=== PATIENT | female | born 1995 | race Caucasian/White ===

== ENCOUNTER 2018-09-13 07:45 | Day surgery (SDC) | payer MEDICAID ==
[2018-09-08 11:51] LABS: BASOPHILS 0.5 % (0-2); EOSINOPHILS 2.3 % (0-7); HEMATOCRIT 40.3 % (36.0-48.0); LYMPHOCYTES 39.5 % (15-50); MCHC 32.3 g/dL (31.0-37.0); MCV 86.7 fL (80.0-100.0); MEAN PLATELET VOLUME 9.9 fL (7.4-10.4); MONOCYTES 8.3 % (2-11); NEUTROPHILS 49.4 % (40-80); PLATELET COUNT 198 10x3/uL (130-400); RBC 4.65 10x6/uL (4.00-5.40); RDW 14.1 % (11.5-14.5)
[2018-09-08 12:06] LABS: CALC OSMOLALITY 281 mosm/kg (275-300); CALCIUM 8.5 mg/dL (8.5-10.1); CARBON DIOXIDE 28.1 mmol/L (21.0-32.0); CHLORIDE - SERUM 105 mmol/L (98-107); CREATININE - SERUM 0.7 mg/dL (0.6-1.3); GLUCOSE 91 mg/dL (74-106); POTASSIUM - SERUM 3.5 mmol/L (3.5-5.1); SODIUM 141 mmol/L (136-145); UREA NITROGEN 14 mg/dL (7-18); eGFR NON AFRICAN AMERICAN > 90 mL/min (90-120)
[~2018-09-13] VITALS: Ht 162.6 cm; Wt 45.4 kg
[~2018-09-13 07:45] MED LIST: ZOLOFT50 MG PO
[2018-09-13 08:16] LABS: HCG URINE NEGATIVE (NEGATIVE)
[2018-09-13 08:23] VITALS: BP 105/57; Ht 162.6 cm; Wt 45.4 kg
--- NOTE | 2018-09-13 14:15 | NUR ---
REC'D FROM RR. DROWSY. FAMILY AT BEDSIDE. DRESSING CDI. SPRITE BROUGHT TO PT.
--- NOTE | 2018-09-13 14:15 | NUR ---
REC'D FROM RR. FAMILY AT BEDSIDE. SPRITE BROUGHT TO PT. DRESSING CDI.
--- NOTE | 2018-09-13 15:07 | NUR ---
FAMILY AT BEDSIDE. AKUA NAVAS ORDERED FOR PT.
--- NOTE | 2018-09-13 15:15 | NUR ---
AKUA NAVAS SERVED TO PT. NO C/O VOICED. EXPLAINED DC CRITERIA TO PT. VERBALIZED UNDERSTANDING.
--- NOTE | 2018-09-13 15:40 | NUR ---
dr calderon rounded. meds adminsitered per orders. denies pain. eating fl tray. spouse at bedside.
--- NOTE | 2018-09-13 16:05 | NUR ---
AMBULATED TO BATHROOM. VOIDED WITHOUT DIFFICULTY,
--- NOTE | 2018-09-13 16:17 | NUR ---
IV DC'D WITH CATHETER INTACT. WRITTEN AND VERBAL DC INST. GIVEN TO PT ALONG WITH RX. VERBALIZED UNDERSTANDING.
--- NOTE | 2018-09-13 16:30 | NUR ---
DC'D HOME WITH FAMILY VIA PRIVATE VEHICLE. TAKEN TO VEHICLE VIA WC. STABLE AT TIME OF DC.
== END 2018-09-13 16:30 | disposition home or self-care (01) ==
LOC: D.OPS 07:45
PROVIDERS: Obstetrics & Gynecology
DX: Z30.2 Encounter for sterilization (principal); Z30.09 Encounter for other general counseling and advice on contraception; Z01.812 Encounter for preprocedural laboratory examination; Z88.5 Allergy status to narcotic agent; F32.9 Major depressive disorder, single episode, unspecified; J45.909 Unspecified asthma, uncomplicated; Z87.891 Personal history of nicotine dependence; Z79.899 Other long term (current) drug therapy